=== PATIENT | female | born 1985 | race Two or more races ===

== ENCOUNTER 2025-01-07 11:30 | Outpatient (RCR) | payer MEDICAID, SELFPAY ==
--- NOTE | 2025-01-01 15:53 | PT.OIERPT ---
PT OP Initial Eval Patient Information Outpatient Physical Therapy Treatment Date: 01/01/25 Medical Diagnosis: M47.27 Treatment Dx #1: Back Pain Treatment Dx #2: Right LE Pain Start of Care: 01/01/25 Date of Onset: Age 13 Smoking Status Smoking Status: Never smoker Initial Assessment Subjective: Pt is a 39 y/o female reports of chronic back pain with right LE numbness worsening in the past 6 months. Pt's most recent MRI showed multiple disc bulge L3-S1; worse at L5-S1 right side 6mm. Pt has limitation with sitting, standing, lifting, work duties, chores, self care cooking, and performing recreational activities. Objective: L/S AROM: all motions are WFL with end range pain into extension and flexion Hip PROM: all motions are WFL except IR Hip MMTs: grossly 3+/5 Special Test (+) SLR Muscle Length: Hs tightness Assessment: Pt demonstrate back pain consistent with MRI findings leading to difficulty with ADLs. Pt will attempt physical therapy if pain persist Pt will be refer back to provider for further consultation. Short Term and Staff Anesthetist Goals 1) Increase L/S AROM WNL in 6 wks to be able to perform chores 2) Decrease back pain to 2/10 in 6 wks to be able to sit and stand more than 30 mins 3) Increase core strength WFL in 6 wks to be able to perform lifting activities 4) Increase hip MMTs grossly to 4-/5 in 6 wks to be able to walk more than 30 mins 5) Indep with HEP Treatment Plan 1) Manual Therapy 2) Therapeutic Activities 3) Therapeutic Exercises 4) Modalities (ice, heat, traction) Frequency and Duration: 2 x wk for 6 wks Certification Dates: 01/01/25 to 04/03/25 Procedure Charges OP PT Eval Mod Complex 30 minutes: Yes
--- NOTE | 2025-01-07 13:08 | PT.ODAYNRPT ---
PT Outpatient Daily Note OP Daily Note Outpatient Physical Therapy Treatment Date: 01/07/25 Subjective: Pt reports mild back pain at this time and symptoms down R LE. Objective: Please see flow sheet for ther ex list. Assessment: Pt able to replicate repeated lumbar extension with good technique, pt encouraged to perform for HEP. Plan: Continue with POC, assess response to treatment. Length of Time (minutes) of Treatment: 30 Minutes Procedure Charges Therapeutic Exercise 30 minutes: Yes
--- NOTE | 2025-01-21 15:43 | PT.ODS1RPT ---
PT OP Progress/Discharge Note Date of Service: 01/21/25 Progress Note/DC Note Progress Note/Discharge Note: DC Note Service Discharge Date: 01/21/25 Status Assessment: Pt has been seen for 2 visits (eval + 1 visit). Pt last treated on 01/07/25. Pt no showed 01/16, 01/19, and 01/21 appt. At this time Pt will be d/c from care due to non-compliance per attendance policy. Pt did not meet set goals in therapy; thank you for your referrals
== END 2025-01-25 23:59 | disposition home or self-care (01) ==
LOC: CPTX 11:30
PROVIDERS: PCP Nurse Practitioner Family; Referring Provider Nurse Practitioner Family; Visit Provider Nurse Practitioner Family
DX: M47.27 Other spondylosis with radiculopathy, lumbosacral region (principal); G89.29 Other chronic pain
CPT/HCPCS: 97110; 97162